=== PATIENT | female | born 1995 | race African-American/Black ===

== ENCOUNTER 2017-06-26 23:43 | Emergency (ER) | payer MEDICAID ==
[~2017-06-26] VITALS: Ht 157.5 cm; Wt 145.0 kg
[2017-06-26 23:55] VITALS: BP 161/95
[2017-06-27] MEDS ORDERED: ACETAMINOPHEN 500MG TABLET PO ONE (00:45)
[2017-06-27] MEDS ORDERED: IBUPROFEN 400MG TABLET PO ONE (00:45)
== END 2017-06-27 01:08 | disposition home or self-care (01) ==
LOC: ER 23:44
DX: H66.92 Otitis media, unspecified, left ear (principal); Z88.0 Allergy status to penicillin
CPT/HCPCS: 99283

== ENCOUNTER 2017-09-03 06:03 | Emergency (ER) | payer MEDICAID ==
[~2017-09-03] VITALS: Ht 157.5 cm; Wt 127.0 kg
[2017-09-03 07:54] VITALS: BP 129/95
== END 2017-09-03 08:11 | disposition home or self-care (01) ==
LOC: ER 07:12
DX: H60.92 Unspecified otitis externa, left ear (principal)
CPT/HCPCS: 99283; Z7610

== ENCOUNTER 2018-08-29 10:16 | Emergency (ER) | payer SELFPAY ==
[~2018-08-29] VITALS: Ht 160 cm; Wt 127.0 kg
[2018-08-29] MEDS ORDERED: ONDANSETRON 4MG ODT PO ONE (12:15)
[2018-08-29] MEDS ORDERED: ACETAMINOPHEN 325MG TABLET PO ONE (12:15)
[2018-08-29 13:30] LABS: BASOPHILS % 0.7 % (0.0-2.0); EOSINOPHILS % 0.2 % (0.0-5.0); HEMATOCRIT. 37.1 % (36.0-48.0); HEMOGLOBIN. 11.8 g/dL (12.0-16.0); LYMPHOCYTES % 31.6 % (20.0-50.0); MEAN CORPUSCULAR HEMOGLOBIN 24.5 pg (28.0-32.0); MEAN PLATELET VOLUME 8.3 fl (7.4-10.4); MONOCYTES % 9.6 % (2.0-8.0); NEUTROPHILS % 57.9 % (40.0-76.0); PLATELET 372 x1000/uL (130-400); RED BLOOD CELL COUNT 4.82 mill/uL (4.2-5.4); RED CELL DISTRIBUTION WIDTH 14.9 % (11.6-14.6)
[2018-08-29 13:31] LABS: CLARITY URINE CLOUDY (CLEAR); COLOR URINE YELLOW (YELLOW); KETONES URINE TRACE (NEGATIVE); LEUKOCYTE ESTERASE URINE 1+ (NEGATIVE); NITRITE URINE NEGATIVE (NEGATIVE); OCCULT BLOOD URINE NEGATIVE (NEGATIVE); PROTEIN URINE NEGATIVE (NEGATIVE); SPECIFIC GRAVITY URINE 1.022 (1.005-1.030)
[2018-08-29 13:37] LABS: CHLORIDE 106 mEq/L (98-107)
[2018-08-29 14:02] LABS: B-HCG QUANTITATIVE 37526 mIU/mL (<3)
[2018-08-29 14:50] VITALS: BP 125/78
== END 2018-08-29 15:05 | disposition home or self-care (01) ==
LOC: ER 10:16
DX: O23.41 Unspecified infection of urinary tract in pregnancy, first trimester (principal); Z3A.01 Less than 8 weeks gestation of pregnancy; Z90.49 Acquired absence of other specified parts of digestive tract; Z88.0 Allergy status to penicillin
CPT/HCPCS: 36415; 76801; 76817; 80053; 81003; 81025; 83690; 84702; 85025; 99284; Q0162

== ENCOUNTER 2024-01-17 11:12 | Emergency (ER) | payer OTHER ==
[~2024-01-17] VITALS: Ht 157.5 cm; Wt 160.0 kg
[2024-01-17 11:22] VITALS: BP 142/91; PULSE 131; RESP 12; TEMP 98.3; O2SAT 98
[2024-01-17] MEDS ORDERED: IBUP-2029 MT (12:07)
[2024-01-17] MEDS ORDERED: LIDO1ADH7 TP (12:08)
== END 2024-01-17 12:28 | disposition home or self-care (01) ==
LOC: ER 11:12
DX: M54.50 Low back pain, unspecified (principal); Z88.0 Allergy status to penicillin; Z90.49 Acquired absence of other specified parts of digestive tract; Z98.890 Other specified postprocedural states
CPT/HCPCS: 99282

== ENCOUNTER 2024-08-19 09:18 | Emergency (ER) | payer MEDICAID, OTHER ==
[~2024-08-19] VITALS: Ht 157.5 cm; Wt 135.0 kg
[~2024-08-19 09:18] MED LIST: IBUP-2029 MT; LIDO1ADH7 TP
[2024-08-19 09:37] VITALS: O2SAT 100
[2024-08-19 09:38] VITALS: BP 140/86; PULSE 94; RESP 12; TEMP 97.5; O2SAT 98
[2024-08-19] MEDS ORDERED: METH4TAB95 MT (10:53)
== END 2024-08-19 11:00 | disposition home or self-care (01) ==
LOC: ER 09:18
DX: T78.40XA Allergy, unspecified, initial encounter (principal); Z88.0 Allergy status to penicillin; Z90.49 Acquired absence of other specified parts of digestive tract; Z98.890 Other specified postprocedural states; X58.XXXA Exposure to other specified factors, initial encounter
CPT/HCPCS: 99283